=== PATIENT | male | born 1950 | race Caucasian/White ===

== ENCOUNTER 2017-03-12 17:32 | Inpatient (IN) | payer MEDICARE ==
[~2017-03-12] VITALS: Ht 172.7 cm; Wt 114.8 kg
--- NOTE | ~2017-03-12 | PN ---
PATIENT:CARLOS ORTIZ MEDICAL RECORD: [id number] LOCATION:[facility] ADMISSION DATE: 03/12/17 PROGRESS NOTE DATE OF SERVICE: 03/17/2017 SUBJECTIVE: The patient's case was discussed with staff. He has no new complaint. OBJECTIVE: The patient has no thoughts of harming himself or others and a near euthymic mood. He has tolerated his initial dose of Aricept well. ASSESSMENT: No change in diagnoses. PLAN: Current medicines have been reviewed and will be maintained. His long-term prognosis is guarded. Brief supportive and educational interventions were made. I anticipate he can be transitioned out of the hospital once placement is arranged. TRANSINT:[id number] Voice Confirmation ID: [id number] DOCUMENT ID: [id number] ROCCO BABIN MD at 1353 CC: [id number] DICTATION DATE: 03/17/17 1706 EQUIPMENT ENGINEER: 03/17/172054 ADM IN [place] [address] [place] [address]
--- NOTE | ~2017-03-12 | PN ---
PATIENT:CARLOS ORTIZ MEDICAL RECORD: [id number] LOCATION:[facility] ADMISSION DATE: 03/12/17 PROGRESS NOTE DATE OF SERVICE: 03/22/2017 SUBJECTIVE: The patient's case was discussed with staff. He has no new complaint. OBJECTIVE: The patient is in good behavioral control. He has been somewhat inappropriate sexually, not in a way that is predatory or aggressive, it is just simply improper flirting and suggestiveness in a way that is probably more consistent with an uninhibited man with a brain injury, which is exactly his condition. I have spoken to him about this. He says that he will try to be more appropriate in his comments and interactions. ASSESSMENT: No change in diagnoses. PLAN: The patient will be maintained on current medicines. Work is going on to try to place him at a homeless assisted with the [place]. His long-term prognosis is guarded. TRANSINT:[id number] Voice Confirmation ID: [id number] DOCUMENT ID: [id number] ROCCO BABIN MD at 1422 CC: [id number] DICTATION DATE: 03/22/17 1345 STATISTICIAN APPLIED: 03/22/17 1404 ADM IN [facility] [address] [place] [id number]
--- NOTE | ~2017-03-12 | PN ---
PATIENT:CARLOS ORTIZ MEDICAL RECORD: [id number] LOCATION:[facility]112 ADMISSION DATE: 03/12/17 PROGRESS NOTE DATE OF SERVICE: 03/24/2017 SUBJECTIVE: No new complaint. OBJECTIVE: The patient has been doing reasonably well. No aggressiveness noted. He is cooperative in terms of medication. On exam, the patient's mood is for the most part euthymic. Affect is rather shallow. Speech is somewhat terse. Content of thought is negative for overt psychosis. Sensorium unchanged. ASSESSMENT: No change in diagnosis. PLAN: 1. Continue all current medications. 2. Continue supportive therapy. TRANSINT:[id number] Voice Confirmation ID: [id number] DOCUMENT ID: [id number] VIKAS HARRIS III, MD at 1045 CC: [id number] DICTATION DATE: 03/24/17 1121 FRAME TABLE OPERATOR HELPER: 03/24/17 1332 ADM IN [facility] [address] [place] [address]
--- NOTE | ~2017-03-12 | PN ---
PATIENT:CARLOS ORTIZ MEDICAL RECORD: [id number] LOCATION:[facility]112 ADMISSION DATE: 03/12/17 PROGRESS NOTE DATE OF SERVICE: 04/02/2017 SUBJECTIVE: The patient's case was discussed with staff. He has no new complaint. OBJECTIVE: The patient is in good behavioral control with euthymic mood. He is tolerating his medicines well. I anticipate he can be transitioned out of the hospital as soon as the [facility] gives us approval. TRANSINT:[id number] Voice Confirmation ID: [id number] DOCUMENT ID: [id number] ROCCO BABIN MD at 0847 CC: [id number] DICTATION DATE: 04/02/17 1314 CLINICAL APPLICATION CONSULTANT: 04/02/17 1338 ADM IN [place] [id number] [place] [address]
--- NOTE | ~2017-03-12 | PN ---
PATIENT:CARLOS ORTIZ MEDICAL RECORD: [id number] LOCATION:[facility]112 ADMISSION DATE: 03/12/17 PROGRESS NOTE DATE OF SERVICE: 03/30/2017 SUBJECTIVE: The patient's case was discussed with staff. He has no new complaint. OBJECTIVE: The patient has a depressed mood, but has not been aggressive and certainly has no thoughts of harming himself or others. I think much of this is related to some anxiety associated with the [facility] giving him a determination on his housing. ASSESSMENT: No change in diagnoses. PLAN: I have reviewed the patient's current medications and shall maintain them. His long-term prognosis is guarded and I anticipate transitioning him out of the hospital when he is medically stable. TRANSINT:[id number] Voice Confirmation ID: [id number] DOCUMENT ID: [id number] ROCCO BABIN MD at 1425 CC: [id number] DICTATION DATE: 03/30/17 1358 PHARMACY AFFAIRS ASSISTANT: 03/30/17 1434 ADM IN [place] [id number] [place] [id number]
--- NOTE | ~2017-03-12 | PN ---
PATIENT:CARLOS ORTIZ MEDICAL RECORD: [id number] LOCATION:[facility] ADMISSION DATE: 03/12/17 PROGRESS NOTE DATE OF SERVICE: 03/31/2017 SUBJECTIVE: The patient's case was discussed with staff. He has no new complaint. OBJECTIVE: The patient is in good behavioral control with limited insight about his condition. He tolerates his medicines well. ASSESSMENT: No change in diagnoses. PLAN: Current medicines and therapies have been reviewed. Long-term prognosis is guarded. I anticipate he could be transitioned out of the hospital as soon as we are waiting on the [facility]. TRANSINT:[id number] Voice Confirmation ID: [id number] DOCUMENT ID: [id number] ROCCO BABIN MD at 1024 CC: [id number] DICTATION DATE: 03/31/17 1458 CLOTH PAINTER: 03/31/17 1523 ADM IN [place] [id number] [place] [id number]
--- NOTE | ~2017-03-12 | DS ---
PATIENT:CARLOS ORTIZ :48 MEDICAL RECORD: [id number] DISCHARGE SUMMARY ADMISSION DATE: 03/12/17 DISCHARGE DATE: 04/06/17 IDENTIFYING DATA: The patient is 66 years old and he is admitted to the hospital on a voluntary basis. The patient is homeless and has been living in his truck. He had been going to the outpatient [facility] in [place] on a daily basis, probably just to get some coffee and get warm, but he was making all sorts of vague and nonspecific complaints which they would evaluate and then turn him back out into the cold. The patient on this occasion made suicidal statements and so the clinic called us and we admitted him. The patient endorsed lots of neurovegetative depressive symptoms, difficulty eating, difficulty managing his diabetes, extreme cold, sleeping in his pickup truck, and had some complaints about being treated unfairly by the police after some sort of altercation that he got into with the son of a girlfriend. He does have criminal charges pending and a trial in late March. PAST MEDICAL HISTORY: Significant for a small stroke and he has a history of hypertension and diabetes. PAST PSYCHIATRIC HISTORY: Significant for outpatient treatment at the mental health clinic the [facility]. HOSPITAL COURSE: The patient was admitted to the hospital and fully evaluated from both a medical, psychological, and social standpoint. He was found to have a vascular dementia that was mild to moderate and a depressive illness that was moderate in severity. The patient was treated pharmacologically along with being given group and individual therapies and a warm and safe environment where his medications were managed. The [facility] was going to assist with placement, but at the last moment after having our social science manager go from office to office to office, they declined to take him. The basis on the decline was that there was a long waiting list for the homeless services and there was no space available. Why the [facility] was unable or unwilling to tell us this when we began the search is a mystery that only the [place] can answer. Alternate placement was found at what I think is going to be a better and more supportive place. He is going to go to a personal [place] [facility] facility. He is happy with this and at the time of discharge, had no evidence of acute dangerousness. I suspect the symptoms that presented were as much related to his fear, distress, and inability to meet his basic needs as they were to depression. DISCHARGE DIAGNOSES: AXIS I: 1. Vascular dementia. 2. Major depression, moderate severity without psychotic features. AXIS II: Deferred. AXIS III: Hypertension, hyperlipidemia, benign prostatic hypertrophy, diabetes, congestive heart failure. AXIS IV: Moderate stressors. AXIS V: Global assessment of functioning is 35. PLAN: At the time of discharge, the patient was in good behavioral control and had no evidence of acute or direct dangerousness to himself or others. He does have some cognitive deficits, particularly with short-term memory and the speed with which he processes information. He is in need of assistance in managing his affairs, but falls short of needing full blown 24-hour shelter supervision. For reasons that are still somewhat mysterious and I think DISCHARGE SUMMARY REPORT [id number] CARLOS ORTIZ probably being hidden from us, the patient has no family, friends or contacts in his [place], who are able or willing to assist him and he has no family, friends or relatives in [place] either. At this point of the living situation, I think it is appropriate. If his condition worsened, he of course will need more supervision. There is certainly no evidence of dangerousness and followup will be with the [facility]. TRANSINT:[id number] Voice Confirmation ID: [id number] DOCUMENT ID: [id number] ROCCO BABIN MD CC: [id number] DICTATION DATE: 04/08/17 1213 EMAIL CAMPAIGN SPECIALIST: 04/08/17 1238 DIS IN 04/06/[address] [place] [id number] [place] [id number]
--- NOTE | ~2017-03-12 | PN ---
PATIENT:CARLOS ORTIZ MEDICAL RECORD: [id number] LOCATION:[facility] ADMISSION DATE: 03/12/17 PROGRESS NOTE DATE OF SERVICE: 03/18/2017 SUBJECTIVE: The patient's case was discussed with staff. He has no new complaint. OBJECTIVE: The patient is in good behavioral control. He is tolerating his medicines well. ASSESSMENT: No change in diagnoses. PLAN: The patient can be transitioned out of the hospital once appropriate placement is arranged. Long-term prognosis is guarded. TRANSINT:[id number] Voice Confirmation ID: [id number] DOCUMENT ID: [id number] ROCCO BABIN MD at 0833 CC: [id number] DICTATION DATE: 03/18/17 1408 ELECTRONIC FUNDS TRANSFER COORDINATOR: 03/18/17 1432 ADM IN [place] [id number] [place] [address]
--- NOTE | ~2017-03-12 | PN ---
PATIENT:CARLOS ORTIZ MEDICAL RECORD: [id number] LOCATION:[facility] ADMISSION DATE: 03/12/17 PROGRESS NOTE DATE OF SERVICE: 03/16/2017 SUBJECTIVE: The patient's case was discussed with staff. He has no new complaint. OBJECTIVE: The patient was tested by Dr. Lisset Henry and found to have evidence of mild impairment with a score of 25 out of 30. He is being considered for placement at a homeless veterans longterm. His long-term prognosis is guarded. He has not been aggressive and denies that he has any suicidal thoughts. TRANSINT:[id number] Voice Confirmation ID: [id number] DOCUMENT ID: [id number] ROCCO BABIN MD at 1637 CC: [id number] DICTATION DATE: 03/16/17 1449 SAW STRAIGHTENER: 03/16/17 1513 ADM IN [place] [id number] [place] [address]
--- NOTE | ~2017-03-12 | PN ---
PATIENT:CARLOS ORTIZ MEDICAL RECORD: [id number] LOCATION:[facility]INI[facility]enrry [facility]112 ADMISSION DATE: 03/12/17 PROGRESS NOTE DATE OF SERVICE: 04/05/2017 SUBJECTIVE: The patient's case was discussed with staff. He has no new complaint. OBJECTIVE: The patient has no thoughts of harming himself or others. He has a euthymic mood and is cooperative. ASSESSMENT: No change in diagnoses. PLAN: The [facility], after leading us so long, for a couple of weeks, telling us everything was fine, now says they cannot take him and that there is a very long waiting list for the facility that we were looking at to begin with. The patient is willing to go to a personal usp here in [place] and arrangements have been made for that tomorrow. He will have follow up with the mental hygiene clinic at the [place]. TRANSINT:[id number] Voice Confirmation ID: [id number] DOCUMENT ID: [id number] ROCCO BAIBN MD at 0849 CC: [id number] DICTATION DATE: 04/05/17 1433 RECREATION ADVISER: 04/05/17 1923 ADM IN [facility] [address] [place] [address]
--- NOTE | ~2017-03-12 | PN ---
PATIENT:CARLOS ORTIZ MEDICAL RECORD: [id number] LOCATION:[facility] ADMISSION DATE: 03/12/17 PROGRESS NOTE DATE OF SERVICE: 03/26/2017 SUBJECTIVE: No new complaint. OBJECTIVE: The patient continues to be compliant. He is taking his medication as prescribed. We are awaiting on the [facility] to complete their placement process. On exam, mood is pleasant and euthymic. Affect is bland. Speech fairly terse. Content of thought is negative for suicidal ideation. Sensorium shows no change. ASSESSMENT: No change in diagnosis. PLAN: 1. Continue all current medications. 2. Continue supportive therapy. TRANSINT:[id number] Voice Confirmation ID: [id number] DOCUMENT ID: [id number] VIKAS HARRIS III, MD at 0727 CC: [id number] DICTATION DATE: 03/26/17 1103 SHRIMP CLEANER: 03/26/17 1124 ADM IN [place] [id number] [place] [address]
--- NOTE | ~2017-03-12 | PSY ---
PATIENT NAME:CARLOS ORTIZ MEDICAL RECORD: [id number] : 48 LOCATION:[facility]ona1 ADMISSION DATE: 03/12/17 ACCOUNT: [id number] PSYCHIATRIC EVALUATION DATE OF EVALUATION: 03/13/17 IDENTIFYING DATA: The patient is 66 years old and he is admitted to the hospital on a voluntary basis. CHIEF COMPLAINT: Suicidal thoughts. HISTORY OF PRESENT ILLNESS: The patient is homeless and he has been living in his truck. He is a and [facility] [place] [facility] almost a daily basis, probably just to get warm and have some coffee, but he is coming in and making all sorts of vague and nonspecific complaints. He said he was suicidal at the [facility] and so based on those statements and the fact that he was clearly showing evidence of impairment, he was referred to us for evaluation and treatment. The patient says that he is no longer suicidal. He just does not know what to do. He holds the side of his head and says he just cannot think straight. He cannot remember things like he should. He cannot keep up with his medicines. He does not know what to do and furthermore, he says he is being treated unfairly by the police who have arrested him for assault. He has a long story about this that basically involves someone who lives with him and an altercation with her son. PAST MEDICAL HISTORY: Significant for a small stroke. He has a history of hypertension and diabetes. PAST PSYCHIATRIC HISTORY: Significant for outpatient treatment at the mental hygiene clinic, although I am not entirely sure what he is being treated for there. He says he just cannot remember what they have had him on and why he has gone there. FAMILY HISTORY: Negative for psychiatric disease by his report. ALLERGIES: No known drug allergies. CURRENT MEDICATIONS: Include aspirin, Lipitor, Aricept, Cymbalta, Proscar, Neurontin, Glucotrol, hydrochlorothiazide, Prinivil, Glucophage, Lopressor, Ultram, and Lantus. SOCIAL HISTORY: The patient is . He has been single for several decades. He has 4 adult children who live in [place]. He claims that he served in the [employer] and that he was honorably discharged. 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 He says he moved to [place] because a family member relative had moved here and told him that the cost of living was nice, reasonable, and that the scenery was nice. MENTAL STATUS EXAMINATION: The patient is awake, alert, and oriented to person, place, and somewhat to time and situation. His mood is depressed. His affect is constricted. Thought processes are circumstantial. Memory, concentration, and abstraction abilities are moderately impaired and he denies any active intent to harm himself or others as well as overt psychotic symptoms. ASSETS: Supportive family members. LIABILITIES: Limited insight. DIAGNOSTIC IMPRESSION: AXIS I: 1. Vascular dementia. 2. Major depression, moderate severity without psychotic features. AXIS II: Deferred. AXIS III: Hypertension, hyperlipidemia, benign prostatic hypertrophy, diabetes, congestive heart failure. AXIS IV: Moderate stressors. AXIS V: Global assessment of functioning is 30. PLAN: At this time, the patient is admitted to the hospital secondary to confusion with some depressive symptoms and suicidal statements. He will be comprehensively evaluated from both a medical, psychological, and social standpoint. He will be treated with both mood stabilizing and memory enhancing medications. His long-term prognosis is guarded. TRANSINT:[id number] Voice Confirmation ID: [id number] DOCUMENT ID: [id number] ROCCO BABIN MD at 1349 CC: [id number] DICTATION DATE: 03/13/17 1225 GREIGE GOODS EXAMINER: 03/13/17 1606 ADM IN [facility] [address] [place] [address]
--- NOTE | ~2017-03-12 | PN ---
PATIENT:CARLOS ORTIZ MEDICAL RECORD: [id number] LOCATION:[facility]112 ADMISSION DATE: 03/12/17 PROGRESS NOTE DATE OF SERVICE: 03/27/2017 SUBJECTIVE: No new complaint. OBJECTIVE: The patient has continued to do well. No further suicidal ideation. He is responsive to staff. On exam, mood is pleasant and euthymic. Affect is bland. Speech is fluent. Content of thought is negative for suicidality. Sensorium unchanged. ASSESSMENT: No change in diagnosis. PLAN: 1. Continue all current medications. 2. Continue supportive therapy. TRANSINT:[id number] Voice Confirmation ID: [id number] DOCUMENT ID: [id number] VIKAS HARRIS III, MD at 0848 CC: [id number] DICTATION DATE: 03/27/17 0800 COMMUNITY DIRECTOR: 03/27/17 1310 ADM IN [place] [id number] [place] [id number]
--- NOTE | ~2017-03-12 | PN ---
PATIENT:CARLOS ORTIZ MEDICAL RECORD: [id number] LOCATION:[facility]112 ADMISSION DATE: 03/12/17 PROGRESS NOTE DATE OF SERVICE: 03/15/2017 SUBJECTIVE: The patient's case was discussed with staff. He has no new complaint. OBJECTIVE: The patient is in good behavioral control with limited insight about his condition. He tolerates his medicines well. ASSESSMENT: No change in diagnoses. PLAN: The patient strongly denies wanting to hurt himself. I am encouraged by this. I am going to prescribe a low-dose of trazodone primarily to assist with sleep consolidation. TRANSINT:[id number] Voice Confirmation ID: [id number] DOCUMENT ID: [id number] ROCCO BABIN MD at 1442 CC: [id number] DICTATION DATE: 03/15/17 1438 FIRE SYSTEMS INSPECTOR: 03/15/17 1737 ADM IN [place] [id number] [place] [address]
--- NOTE | ~2017-03-12 | PN ---
PATIENT:CARLOS ORTIZ MEDICAL RECORD: [id number] LOCATION:SAMI DukesAngela112 ADMISSION DATE: 03/12/17 PROGRESS NOTE DATE OF SERVICE: 03/19/2017 SUBJECTIVE: The patient's case was discussed with staff. He has no new complaint. OBJECTIVE: The patient is disorganized and has made a number of socially inappropriate statements. Unfortunately, also he is running a fever of 101 and has symptoms symptomatic or characteristic of influenza. He has had nasal swabbing that shows it is negative, but nevertheless, he certainly appears ill. ASSESSMENT: No change in psychiatric diagnoses. PLAN: The patient will be maintained on current behavioral and cognitive medications. Regarding the treatment of this underlying medical issue, I am going to leave that to the primary care physician. TRANSINT:[id number] Voice Confirmation ID: [id number] DOCUMENT ID: [id number] ROCCO BABIN MD at 1338 CC: [id number] DICTATION DATE: 03/19/17 1312 PSYCHOLOGIST PERSONNEL: 03/19/17 1331 ADM IN [place] [id number] [place] [address]
--- NOTE | ~2017-03-12 | PN ---
PATIENT:CARLOS ORTIZ MEDICAL RECORD: [id number] LOCATION:[facility]112 ADMISSION DATE: 03/12/17 PROGRESS NOTE DATE OF SERVICE: 03/29/2017 SUBJECTIVE: The patient's case was discussed with staff. He has no new complaint. OBJECTIVE: The patient denies intent to harm himself or others. He is in good behavioral control, but has significant and serious evidence of cognitive impairment. ASSESSMENT: No change in diagnoses. PLAN: Current medicines have been reviewed and will be maintained. I am going to increase the dose of the Aricept slightly. TRANSINT:[id number] Voice Confirmation ID: [id number] DOCUMENT ID: [id number] ROCCO BABIN MD at 1352 CC: [id number] DICTATION DATE: 03/29/17 1426 ADDRESSER: 03/29/17 1534 ADM IN [id number] [place] [address]
--- NOTE | ~2017-03-12 | PN ---
PATIENT:CARLOS ORTIZ MEDICAL RECORD: [id number] LOCATION:[facility]112 ADMISSION DATE: 03/12/17 PROGRESS NOTE DATE OF SERVICE: 03/20/2017 SUBJECTIVE: The patient asked the examiner if he has any ice cream or sodas. OBJECTIVE: The patient has been fairly cooperative. The patient was tested for influenza and result came back negative. He is eating fairly well. No behavioral problems in the last 24 hours. On exam, mood is for the most part euthymic. Affect is bland. Speech is oblique and tangential. Content of thought is negative for suicidal intent. Sensorium shows no change. ASSESSMENT: No change in diagnosis. PLAN: 1. Continue all current medications. 2. Continue supportive therapy. TRANSINT:[id number] Voice Confirmation ID: [id number] DOCUMENT ID: [id number] VIKAS HARRIS III, MD at 1830 CC: [id number] DICTATION DATE: 03/20/17 1143 MEDIA CENTER DIRECTOR SCHOOL: 03/20/17 1557 ADM IN [facility] [address] [place] [address]
--- NOTE | ~2017-03-12 | PN ---
PATIENT:CARLOS ORTIZ MEDICAL RECORD: [id number] LOCATION:[facility] Cole112 ADMISSION DATE: 03/12/17 PROGRESS NOTE DATE OF SERVICE: 03/23/2017 SUBJECTIVE: The patient's case was discussed with staff. He has no new complaint. OBJECTIVE: The patient is in good behavioral control. He has a depressed mood and evidence of clear cognitive impairment. ASSESSMENT: No change in diagnoses. PLAN: The patient slept 11 hours last night. I am going to discontinue his trazodone on the basis that he does not need a sleep aid. In addition to this, at this point, we are waiting on the [facility]. His long-term prognosis is guarded. The director of social services is going to call the court since he is scheduled for an appearance on Wednesday on some misdemeanor criminal charges related to assault and is not going to be able to make that since he is hospitalized. TRANSINT:[id number] Voice Confirmation ID: [id number] DOCUMENT ID: [id number] ROCCO BABIN MD at 1429 CC: [id number] DICTATION DATE: 03/23/17 1431 MEDIA SALES EXECUTIVE: 03/23/17 1510 ADM IN [place] [address] [place] [address]
--- NOTE | ~2017-03-12 | PN ---
PATIENT:CARLOS ORTIZ MEDICAL RECORD: [id number] LOCATION:[facility]112 ADMISSION DATE: 03/12/17 PROGRESS NOTE DATE OF SERVICE: 03/25/2017 SUBJECTIVE: The patient's case was discussed with staff. He has no new complaint. OBJECTIVE: The patient is in good behavioral control with limited insight about his condition. He tolerates his medications well. He has significant memory impairment, but no thoughts of harming himself or others. ASSESSMENT: No change in diagnoses. PLAN: Current medicines have been reviewed and will be maintained. Long-term prognosis is guarded. Brief supportive and educational interventions were made. TRANSINT:[id number] Voice Confirmation ID: [id number] DOCUMENT ID: [id number] ROCCO BABIN MD at 1422 CC: [id number] DICTATION DATE: 03/25/17 1432 HEEL SCORER: 03/25/17 1452 ADM IN [place] [id number] [place] [address]
--- NOTE | ~2017-03-12 | PN ---
PATIENT:CARLOS ORTIZ MEDICAL RECORD: [id number] LOCATION:[facility] ADMISSION DATE: 03/12/17 PROGRESS NOTE DATE OF SERVICE: 04/01/2017 SUBJECTIVE: The patient's case was discussed with staff. He has no new complaint. OBJECTIVE: The patient denies intent to harm himself or others. He tolerates his medicines well. ASSESSMENT: No change in diagnoses. PLAN: Supportive and educational interventions were made. Long-term prognosis is guarded. We are [facility] on [facility] to [facility] for [facility] to [facility]. TRANSINT:[id number] Voice Confirmation ID: [id number] DOCUMENT ID: [id number] ROCCO BABIN MD at 1024 CC: [id number] DICTATION DATE: 04/01/17 1032 WHIP OPERATOR: 04/01/17 1051 ADM IN [place] [id number] [place] [id number]
[2017-03-12] MEDS ORDERED: BAYER CHEWABLE81 MG PO (17:40)
[2017-03-12] MEDS ORDERED: LIPITOR40 MG PO (17:41)
[2017-03-12] MEDS ORDERED: ARICEPT5 MG PO (17:41)
[2017-03-12] MEDS ORDERED: PROSCAR5 MG PO (17:42)
[2017-03-12] MEDS ORDERED: CYMBALTA60 MG PO (17:42)
[2017-03-12] MEDS ORDERED: GABAPENTIN100 MG PO (18:02)
[2017-03-12] MEDS ORDERED: HYDROCHLOROTH12.5 M1 PO (18:03)
[2017-03-12] MEDS ORDERED: GLIPIZIDE10 MG PO (18:03)
[2017-03-12] MEDS ORDERED: PRINIVIL20 MG PO (18:07)
[2017-03-12] MEDS ORDERED: GLUCOPHAGE500 MG PO (18:08)
[2017-03-12] MEDS ORDERED: LOPRESSOR25 MG PO (18:09)
[2017-03-12] MEDS ORDERED: OMEPRAZOLE20 M1 PO (18:13)
[2017-03-12] MEDS ORDERED: MICONAZORB AF71 GM TOPICAL (18:13)
[2017-03-12] MEDS ORDERED: ULTRAM50 MG PO (18:14)
[2017-03-12] MEDS ORDERED: LANTUS SOL100 UNIT/1 SC (19:04)
[2017-03-12 19:19] LABS: BASOPHILS 0.2 % (0-2); EOSINOPHILS 0.6 % (0-7); HEMATOCRIT 39.9 % (42.0-54.0); HEMOGLOBIN 13.4 g/dL (13.5-17.5); IMMATURE GRANULOCYTES 0.4 % (0-5); LYMPHOCYTES 22.4 % (15-50); MCH 29.3 pg (26.0-34.0); MCHC 33.6 g/dL (31.0-37.0); MCV 87.1 fL (80.0-100.0); MEAN PLATELET VOLUME 8.9 fL (7.4-10.4); MONOCYTES 8.1 % (2-11); NEUTROPHILS 68.3 % (40-80); PLATELET COUNT 303 10x3/uL (130-400); RBC 4.58 10x6/uL (4.20-6.10); RDW 13.3 % (11.5-14.5)
[2017-03-12 19:34] LABS: HEMOGLOBIN A1C 11.3 % (4.8-6.0)
[2017-03-12 19:45] LABS: ALBUMIN 3.9 g/dL (3.4-5.0); ANION GAP 18.7 mmol/L (8-16); BILIRUBIN - TOTAL 0.65 mg/dL (0.2-1.3); CALCIUM 9.9 mg/dL (8.5-10.1); CARBON DIOXIDE 22.9 mmol/L (21.0-32.0); CHOL - HDL RATIO 2.5 ratio (2.3-4.9); CREATININE - SERUM 1.5 mg/dL (0.6-1.3); LDL-HDL RATIO 1.2 ratio (1.5-3.5); POTASSIUM - SERUM 3.6 mmol/L (3.5-5.1); THYROID STIMULATING HORMONE 2.09 uIU/mL (0.36-3.74)
[2017-03-12 19:53] VITALS: BP 120/64
[2017-03-12 22:48] VITALS: BP 178/86; BMI 38.5
[2017-03-13 07:08] LABS: HEMOGLOBIN 12.4 g/dL (13.5-17.5); LYMPHOCYTES 24.5 % (15-50); MCH 29.2 pg (26.0-34.0); MCHC 33.5 g/dL (31.0-37.0); MCV 87.1 fL (80.0-100.0); MEAN PLATELET VOLUME 8.2 fL (7.4-10.4); PLATELET COUNT 286 10x3/uL (130-400); RBC 4.25 10x6/uL (4.20-6.10); RDW 13.6 % (11.5-14.5)
[2017-03-13 07:20] LABS: WBC 6.9 10x3/uL (4.8-10.8)
[2017-03-13 07:22] LABS: HEMOGLOBIN A1C 11.6 % (4.8-6.0)
[2017-03-13 07:28] LABS: ALBUMIN 3.3 g/dL (3.4-5.0); ANION GAP 14.2 mmol/L (8-16); BILIRUBIN - TOTAL 0.56 mg/dL (0.2-1.3); CALCIUM 9.6 mg/dL (8.5-10.1); CARBON DIOXIDE 26.7 mmol/L (21.0-32.0); CHOL - HDL RATIO 2.6 ratio (2.3-4.9); CREATININE - SERUM 1.4 mg/dL (0.6-1.3); LDL-HDL RATIO 1.3 ratio (1.5-3.5); POTASSIUM - SERUM 3.9 mmol/L (3.5-5.1); PROTEIN - SERUM 7.2 g/dL (6.4-8.2); THYROID STIMULATING HORMONE 1.8 uIU/mL (0.36-3.74)
[2017-03-13 09:11] VITALS: BP 160/80
[2017-03-13 09:41] LABS: APPEARANCE HAZY (CLEAR); BILIRUBIN NEGATIVE (NEGATIVE); COLOR YELLOW (YELLOW); GLUCOSE 1000 mg/dL (NEGATIVE); KETONE SMALL mg/dL (NEGATIVE); NITRITE NEGATIVE (NEGATIVE); PROTEIN 2+ mg/dL (NEGATIVE); SPECIFIC GRAVITY 1.015 (1.005-1.020); UROBILINOGEN NORMAL (NORMAL)
[2017-03-13 09:45] LABS: BACTERIA MODERATE /hpf (NONE SEEN); EPITHELIAL CELLS 0-5 /hpf (0-5); RED CELLS - URINE 25-50 /hpf (0-5)
[2017-03-13 19:30] VITALS: BP 103/61
[2017-03-14 07:00] VITALS: BP 142/63
[2017-03-14 08:20] VITALS: BMI 38.5
[2017-03-14 20:10] VITALS: BP 164/76
[2017-03-15 06:56] LABS: ANION GAP 12.7 mmol/L (8-16); CALCIUM 9.7 mg/dL (8.5-10.1); CARBON DIOXIDE 28.7 mmol/L (21.0-32.0); CREATININE - SERUM 1.4 mg/dL (0.6-1.3); POTASSIUM - SERUM 4.4 mmol/L (3.5-5.1)
[2017-03-15 07:00] VITALS: BP 128/79
[2017-03-15 07:10] LABS: VITAMIN D 25 HYDROXY 13.3 ng/mL (30.0-100.0)
[2017-03-15 11:13] LABS: FOLATE (FOLIC ACID) - SERUM 14.4 ng/mL (>3.0)
[2017-03-15 19:46] VITALS: BP 109/51
[2017-03-16 03:11] LABS: RAPID PLASMA REAGIN Non Reactive (Non Reactive)
[2017-03-16 06:14] LABS: RAPID PLASMA REAGIN Non Reactive (Non Reactive)
[2017-03-16 08:30] VITALS: BP 149/077
[2017-03-16 12:19] VITALS: Ht 172.7 cm; Wt 114.8 kg
[2017-03-16 19:36] VITALS: BP 98/76
[2017-03-17 07:47] LABS: ANION GAP 9.9 mmol/L (8-16); CALCIUM 9.5 mg/dL (8.5-10.1); CARBON DIOXIDE 29.9 mmol/L (21.0-32.0); CREATININE - SERUM 1.4 mg/dL (0.6-1.3); POTASSIUM - SERUM 4.8 mmol/L (3.5-5.1)
[2017-03-17 09:47] VITALS: BP 132/71
[2017-03-17 19:05] VITALS: BP 107/52
[2017-03-18 08:30] VITALS: BP 147/073
[2017-03-18 19:30] VITALS: BP 146/82
[2017-03-19 06:15] LABS: ANION GAP 14.6 mmol/L (8-16); CALCIUM 8.8 mg/dL (8.5-10.1); CARBON DIOXIDE 24.9 mmol/L (21.0-32.0); CREATININE - SERUM 1.5 mg/dL (0.6-1.3); POTASSIUM - SERUM 4.5 mmol/L (3.5-5.1)
[2017-03-19 07:54] LABS: BASOPHILS 0.2 % (0-2); EOSINOPHILS 0.1 % (0-7); HEMATOCRIT 37.6 % (42.0-54.0); HEMOGLOBIN 12.2 g/dL (13.5-17.5); IMMATURE GRANULOCYTES 0.3 % (0-5); LYMPHOCYTES 9.3 % (15-50); MCH 28.8 pg (26.0-34.0); MCHC 32.4 g/dL (31.0-37.0); MCV 88.7 fL (80.0-100.0); MEAN PLATELET VOLUME 9.8 fL (7.4-10.4); MONOCYTES 10.6 % (2-11); NEUTROPHILS 79.5 % (40-80); PLATELET COUNT 253 10x3/uL (130-400); RBC 4.24 10x6/uL (4.20-6.10); RDW 13.4 % (11.5-14.5); WBC 10.8 10x3/uL (4.8-10.8)
[2017-03-19 10:40] VITALS: BP 140/74
[2017-03-19 20:15] VITALS: BP 141/056
[2017-03-20 07:43] VITALS: BP 91/55
[2017-03-20 19:30] VITALS: BP 143/89
[2017-03-21 08:30] VITALS: BP 125/070
[2017-03-21 19:30] VITALS: BP 124/76
[2017-03-22 08:46] VITALS: BP 138/79
[2017-03-22 19:54] VITALS: BP 133/63
[2017-03-23 08:00] VITALS: BP 126/56
[2017-03-23 11:13] LABS: CALCIUM 8.7 mg/dL (8.5-10.1); CARBON DIOXIDE 27.6 mmol/L (21.0-32.0); CREATININE - SERUM 1.6 mg/dL (0.6-1.3); POTASSIUM - SERUM 4.6 mmol/L (3.5-5.1)
[2017-03-23 21:23] VITALS: BP 130/62
[2017-03-24 07:59] VITALS: BP 159/73
[2017-03-24 19:30] VITALS: BP 105/53
[2017-03-25 10:00] VITALS: BP 130/82
[2017-03-25 19:43] VITALS: BP 124/59
[2017-03-26 09:48] VITALS: BP 129/89
[2017-03-26 19:44] VITALS: BP 133/89
[2017-03-27 10:17] VITALS: BP 161/72
[2017-03-27 19:27] VITALS: BP 147/60
[2017-03-28 07:00] VITALS: BP 147/72
[2017-03-28 07:16] LABS: ANION GAP 11.2 mmol/L (8-16); CALCIUM 9.1 mg/dL (8.5-10.1); CARBON DIOXIDE 29.3 mmol/L (21.0-32.0); CREATININE - SERUM 1.1 mg/dL (0.6-1.3); POTASSIUM - SERUM 4.5 mmol/L (3.5-5.1)
[2017-03-28 21:00] VITALS: BP 132/76
[2017-03-29 07:00] VITALS: BP 137/80
[2017-03-29 20:56] VITALS: BP 136/71
[2017-03-30 10:02] VITALS: BP 124/67
[2017-03-30 19:58] VITALS: BP 120/61
[2017-03-31 10:09] VITALS: BP 132/68
[2017-03-31 19:59] VITALS: BP 136/70
[2017-04-01 10:22] VITALS: BP 130/70
[2017-04-01 19:31] VITALS: BP 130/70
[2017-04-02 09:22] VITALS: BP 169/83
[2017-04-03 09:12] VITALS: BP 168/78
[2017-04-03 20:13] VITALS: BP 120/60
[2017-04-04 07:45] VITALS: BP 137/63
[2017-04-04 20:01] VITALS: BP 131/57
[2017-04-05 07:00] VITALS: BP 140/84
[2017-04-05] MEDS ORDERED: ARICEPT10 MG PO (14:15)
[2017-04-05] MEDS ORDERED: GLIMEPIRIDE4 MG PO (14:16)
[2017-04-05 19:44] VITALS: BP 138/72
[2017-04-06 08:57] VITALS: BP 138/78
== END 2017-04-06 11:00 | disposition home or self-care (01) | DRG 885 ==
LOC: D.PSYCH 17:32
PROVIDERS: Family Medicine; Psychiatry & Neurology Psychiatry
DX: F32.1 Major depressive disorder, single episode, moderate (principal); F01.51 Vascular dementia, unspecified severity, with behavioral disturbance; N17.9 Acute kidney failure, unspecified; I69.918 Other symptoms and signs involving cognitive functions following unspecified cerebrovascular disease; E78.5 Hyperlipidemia, unspecified; N40.0 Benign prostatic hyperplasia without lower urinary tract symptoms; I11.0 Hypertensive heart disease with heart failure; I50.9 Heart failure, unspecified; Z59.0 Homelessness; K21.9 Gastro-esophageal reflux disease without esophagitis; L80 Vitiligo; E11.40 Type 2 diabetes mellitus with diabetic neuropathy, unspecified; M25.522 Pain in left elbow